=== PATIENT | female | born 1960 | race Caucasian/White ===

== ENCOUNTER 2016-12-31 13:24 | Emergency (ER) | payer SELFPAY ==
[2016-12-31] MEDS ORDERED: LIDOCAINE HCL 2% JELLY 1 APP/5 ML TUBE ONE (13:45)
--- NOTE | 2016-12-31 14:02 | ER NURSING DOCUMENTATION ---
Nurse's Notes [facility] Name:Vinita Villeda Age:56 yrs Sex:Female :1960 Arrival Date:12/31/2016 Time:13:24 Bed6 Private MD: Diagnosis:Abrasion Presentation: 12/31 13:27 Acuity: EMY 3 13:32 Presenting complaint: Patient states: SLIPPED AND SCRAPED RIGHT KNEE AT CAMP. ABLE TO lc BEAR WT AND FEELS STABLE. NO OTHER INJURY. Transition of care: patient was not received from another setting of care. Notified ED Physician of patient's arrival and CC. 13:32 Method Of Arrival: Private Vehicle lc Triage Assessment: 13:34 General: Appears in no apparent distress, Behavior is cooperative, pleasant. Pain: lc Complains of pain in right knee Pain At worst was 5 out of 10 on a pain scale. Quality of pain is described as throbbing, Pain began 2 hours ago. Neuro: Level of Consciousness is awake, alert, Oriented to person, place, time, event. Derm: Skin is pink, warm & dry. Musculoskeletal: Circulation, motion, and sensation intact Range of motion intact in all extremities. Injury Description: Abrasion sustained to right knee is bleeding, was sustained 1-2 hours ago. Historical: - Allergies: No known drug Allergies; - Home Meds: 1. None - PMHx: None; - PSHx: None; - Tetanus: < 10 years. - Ebola Screening: : Patient denies travel to an Ebola-affected area in the 21 days before illness onset. No symptoms or risks identified at this time. . - Immunization history: Flu Vaccine < 1 year. - Social history: Smoking status: Patient states was never smoker of tobacco. Screenin:36 Infectious Disease Risk None. Abuse screen: Denies threats or abuse. Denies injuries lc from another. Nutritional screening: No deficits noted. Assessment: 13:35 See Triage Assessment done by same RN. Vital Signs: 13:33 BP 122 / 65 RA Sitting (auto/reg); Pulse 81 RA; Resp 16 S; Temp 97.7(O); Pulse Ox 97% em3 on R/A; Weight 58.97 kg (R); Height 5 ft. 4 in. (162.56 cm) (R); Pain 5/10; 14:00 Pain 2/10; lc 13:33 Body Mass Index 22.31 (58.97 kg, 162.56 cm) em3 ED Course: 13:25 Patient arrived in ED. arc 13:27 Corin Lee RN is Primary Nurse. 13:27 Triage completed. 13:34 Valuables Remains with patient Patient has correct armband on for positive em3 identification. Bed in low position. Call light in reach. 13:54 Kenneth Aguayo MD is Attending Physician. tl1 13:59 Wound care to abrasion, located on right knee was cleaned with soap and water, lc Irrigation Normal Saline dressed with bacitracin Kerlix, Telfa Patient tolerated well. Administered Medications: 13:36 Drug: Lidocaine Ointment (2%) 1 inches; Route: Topical; Infused Over: 15 mins; Site: lc affected area; 14:00 Follow up: Response: Pain is decreased Outcome: 13:54 Discharge ordered by . tl1 14:00 Discharged to home ambulatory, with significant other. 14:00 Condition: good 14:00 Discharge Assessment: Patient awake, alert and oriented x 3. No cognitive and/or functional deficits noted. Patient verbalized understanding of disposition instructions. 14:00 Discharge instructions given to patient, Instructed on discharge instructions, follow up and referral plans. wound care, Demonstrated understanding of instructions. 14:01 Patient left the ED. 01/01 12:16 Discharge F/U Call: Unable to reach: left voicemail: danelle Signatures: Corin Lee RN RN Jon Gabriel em3 Kenneth Aguayo MD MD tl1 Rox Salvador, Reg [facility] Luz Maria Benedict
--- NOTE | 2017-01-02 14:01 | ER PHYSICIAN DOCUMENTATION ---
Physician Documentation [facility] Name:Vinita Villeda Age:56 yrs Sex:Female :1960 Arrival Date:12/31/2016 Time:13:24 Bed6 Private MD: Kenneth Anguiano Disposition: 01/01 19:01 Chart complete. tl1 Disposition: 12/31/16 13:54 Discharged to Home/Self Care. Impression: Abrasion. - Condition is Good. - Discharge Instructions: ABRASION. - Medical Reconciliation form form. - Follow up: Private Physician; When: As needed; Reason: Recheck today's complaints. - Problem is new. - Symptoms have improved. HPI: 12/31 13:30 This 56 yrs old Female presents to ER via Private Vehicle with complaints of tl1 Knee Injury. 13:30 The patient presents with an abrasion. The complaints affect the right knee. Context: tl1 The problem was sustained outdoors, resulted from the patient falling, while walking, the patient can fully bear weight, the patient is able to ambulate. Onset: The symptom(s)/episode began/occurred just prior to arrival. She is concerned she could have a laceration, and it was too painful to clean out so she could investigate.. Historical: - Allergies: No known drug Allergies; - Home Meds: 1. None - PMHx: None; - PSHx: None; - Tetanus: < 10 years. - Ebola Screening: : Patient denies travel to an Ebola-affected area in the 21 days before illness onset. No symptoms or risks identified at this time. . - Immunization history: Flu Vaccine < 1 year. - Social history: Smoking status: Patient states was never smoker of tobacco. ROS: 13:40 MS/extremity: Positive for abrasion. tl1 13:40 All other systems are negative. Exam: 13:40 Constitutional: This is a well developed, well nourished patient who is awake, alert, tl1 and in no acute distress. 13:40 Cardiovascular: Rate: normal. 13:40 Respiratory: Respirations: normal. 13:40 Musculoskeletal/extremity: Extremities: grossly normal except: noted in the right knee: abrasion. Vital Signs: 13:33 BP 122 / 65 RA Sitting (auto/reg); Pulse 81 RA; Resp 16 S; Temp 97.7(O); Pulse Ox 97% em3 on R/A; Weight 58.97 kg (R); Height 5 ft. 4 in. (162.56 cm) (R); Pain 5/10; 14:00 Pain 2/10; lc 13:33 Body Mass Index 22.31 (58.97 kg, 162.56 cm) em3 MDM: 13:40 Data reviewed: vital signs, nurses notes, and as a result, I will discharge patient. tl1 Counseling: I had a detailed discussion with the patient and/or guardian regarding: the historical points, exam findings, and any diagnostic results supporting the discharge/admit diagnosis, the need for outpatient follow up, to return to the emergency department if symptoms worsen or persist or if there are any questions or concerns that arise at home. Response to treatment: the patient's symptoms have mildly improved after treatment, and as a result, I will discharge patient. ED course: LET to abrasion resulted in good anesthesia. I supplemented that with a field block of bupivicaine. The abrasion was scrubbed with a surgical betadine brush until clean, and bandaged.. 13:54 Patient medically screened. tl1 Dispensed Medications: 13:36 Drug: Lidocaine Ointment (2%) 1 inches; Route: Topical; Infused Over: 15 mins; Site: lc affected area; 14:00 Follow up: Response: Pain is decreased lc Signatures: Corin Lee, RN RN Kenneth Palmer MD MD tl1
== END 2016-12-31 14:02 | disposition home or self-care (01) ==
LOC: ER 13:24
DX: S80.211A Abrasion, right knee, initial encounter (principal); W01.0XXA Fall on same level from slipping, tripping and stumbling without subsequent striking against object, initial encounter; Y92.838 Other recreation area as the place of occurrence of the external cause; Y93.01 Activity, walking, marching and hiking
CPT/HCPCS: 99283